=== PATIENT | male | born 1980 | race Caucasian/White ===

== ENCOUNTER 2016-07-24 09:21 | Emergency (ER) | payer MEDICAID ==
[~2016-07-24] VITALS: Ht 165.1 cm; Wt 88.0 kg
[2016-07-24 09:39] VITALS: Ht 165.1 cm; Wt 88.0 kg
--- NOTE | 2016-07-24 09:59 | ERA ---
ER Documentation Chief Complaint Date/Time DATE: 07/24/16 TIME: 09:57 Chief Complaint RIGHT KNEE PAIN X1 DAY HPI 35-year-old male presenting one day after onset of knee pain. Pain has jameson worsening and is described as dull. Patient denies any trauma. Patient denies any medical conditions. Patient denies recent recent GI illness, or sexual activity, discharge, dysuria or hematuria. Denies similar symptoms in the past , fever, break of the skin. ROS All systems reviewed and are negative except as per history of present illness. Medications Home Meds Active Scripts Ibuprofen* (Motrin*) 600 Mg Tab, 600 MG PO Q6H Y for PAIN AND OR ELEVATED TEMP, #30 TAB Prov:RAJAN LEBRON PA-C 07/24/16 Allergies Allergies: Coded Allergies: No Known Allergy (Unverified , 07/24/16) Physical Exam Vitals Vital Signs Date Time Temp Pulse Resp B/P Pulse Ox O2 Delivery O2 Flow Rate FiO2 07/24/16 09:39 97.6 78 20 154/96 98 Physical Exam Const: 35-year-old male in no acute distress sitting in wheelchair upon presentation Head: Atraumatic Eyes: Normal Conjunctiva ENT: Normal External Ears, Nose and Mouth. Neck: Full range of motion..~ No meningismus. Resp: Clear to auscultation bilaterally Cardio: Regular rate and rhythm, no murmurs Abd: Soft, non tender, non distended. Normal bowel sounds Skin: No petechiae or rashes Back: No midline or flank tenderness Ext: Right knee mild to moderately tender. No swelling, erythema. No cyanosis, or edema. Range of motion decreased secondary to pain. Negative Lockman's, anterior/posterior drawer signs; Lateral and medial ligament laxity. Negative Yony's. Pain reproduced with motion. Neur: Awake and alert Psych: Normal Mood and Affect Results 24 hrs Current Medications Medications (Trade) Dose Ordered Sig/Marva Route PRN Reason Start Time Stop Time Status Last Admin Dose Admin Acetaminophen/ Hydrocodone Bitart ([place] (5/325)) 1 tab ONCE ONCE PO 07/24/16 10:00 07/24/16 10:01 DC 07/24/16 10:25 Procedures/MDM 35-year-old male with tenderness to palpation and pain with motion of the right knee. Denied medical history. X-ray was obtained to rule out finding of bony abnormalities or chondrocalcinosis suggesting pseudogout. X-ray results were read by radiologist and are as follows: Unremarkable radiograph of the right knee. At this time I am unable to rule out chronic conditions, or tendon or ligamentous injuries. Thus, the pt was given recommendations to follow up with ortho and advised to follow up with their PCP in the next 1-2 days to be formally referred to, and further evaluated for soft tissue injuries, by an exhibition specialist. Pt will be discharged with an NSAID to control the pain. There is no need for stabilization with a brace or cast at this time. The patient is able to ambulate does not require an assistance device for ADL. Patient's neurovascular status has remained unchanged. Patient has been given a list of orthopedic locations to follow-up with PCP appointment is unobtainable. Departure Diagnosis: Primary Impression: Knee pain Qualified Code: M25.561 - Right knee pain, unspecified chronicity Condition: Stable Additional Instructions: Follow up with your PCP within the next 1-3 days for a more thorough evaluation and a possible referral to a specialist. Return the the emergency department immediately if symptoms worsen or change. If you have any questions regarding medications, ask your pharmacist or us before you leave. If any adverse reactions occur while taking your medications, discontinue the treatment and return to the emergency department immediately. Take your medications as directed, and complete the entire course of treatment. RAJAN LEBRON PA-C Jul 24, 2016 09:59
[2016-07-24] MEDS ORDERED: HYDROCODONE/APAP (5/325) TAB PO ONE (10:00)
--- NOTE | 2016-07-24 11:21 | RADRPT ---
PROCEDURE: RIGHT knee x-ray CLINICAL INDICATION: Knee pain TECHNIQUE: AP, lateral and tunnel views of the knee were obtained. COMPARISON: None FINDINGS: There is normal mineralization. No acute fracture or dislocation is seen. There is no joint effusion. There are no significant degenerative changes. There is no significant soft tissue swelling. RPTAT: AA IMPRESSION: Normal x-ray of the right knee. .Charlie Wylie MD, MD Date Time Electronically viewed and signed by .Charlie Wylie MD, on 07/24/2016 11:20 .S/
[2016-07-24] MEDS ORDERED: IBUP-1542 PO (11:40)
== END 2016-07-24 11:54 | disposition home or self-care (01) ==
LOC: FTE 09:21
DX: M25.561 Pain in right knee (principal)
CPT/HCPCS: 73562; Z7502; Z7610